=== PATIENT | female | born 2000 | race Hispanic/Latino ===

== ENCOUNTER 2024-03-03 14:17 | Outpatient (CLI) | payer OTHER | END 2024-03-03 14:18 | disposition home or self-care (01) | LOC: CSHULT 14:17 | PROVIDERS: ATTEND Clinical Nurse Specialist Adult Health | DX: Z34.92 Encounter for supervision of normal pregnancy, unspecified, second trimester (principal); Z3A.22 22 weeks gestation of pregnancy | CPT/HCPCS: 76805 ==